=== PATIENT | female | born 1995 | race American Indian/Alaskan Native ===

== ENCOUNTER 2018-01-16 14:50 | Inpatient (IN) | payer MEDICAID ==
[2018-01-16] MEDS ORDERED: SUBLIMAZE IV PRN (17:13)
[2018-01-16] MEDS ORDERED: ZOFRAN IV PRN ×2 (17:13→17:39)
[2018-01-16] MEDS ORDERED: XYLOCAINE 2% INFILTRATI ONE (17:13)
[2018-01-16] MEDS ORDERED: MINERAL OIL PO PRN (17:13)
[2018-01-16] MEDS ORDERED: BRETHINE SUB-Q PRN (17:13)
[2018-01-16] MEDS ORDERED: ePHEDrine SULFATE IV PRN (17:13)
[2018-01-16] MEDS ORDERED: BRETHINE IVP PRN (17:13)
[2018-01-16] MEDS ORDERED: STADOL IV PRN (17:13)
--- NOTE | 2018-01-16 17:17 | History and Physical Report ---
History of Present Illness Date of examination: 01/16/18 Date of admission: 01/16/18 14:51 Chief complaint: Labor History of present illness: Pt is a 22yo BF EDC 02/01/18; EGA 37 5/7 weeks presents to L&D complaining of RUC's q 3-4 mins. She received care at [facility] however records are not available and GBS is unknown. Past History Past Medical History: no pertinent history Past Surgical History: no surgical history Social history: no significant social history, single - Obstetrical History Expected Date of Delivery: 02/01/18 Actual Gestation: 37 Week(s) 5 Day(s) : 1 Medications and Allergies Allergies Allergy/AdvReac Type Severity Reaction Status Date / Time No Known Allergies Allergy Unverified 01/16/18 15:02 Home Medications Medication Instructions Recorded Confirmed Last Taken Type Pnv No.121/Iron/Folic Acid 1 each PO DAILY 01/16/18 01/16/18 01/16/18 History [ Multivitamin Tablet] 2100 Review of Systems All systems: negative - Vital Signs Vital signs: Vital Signs Pulse BP Pulse Ox 106 H 120/79 100 01/16/18 15:20 01/16/18 15:20 01/16/18 15:20 Temp Pulse Resp BP Pulse Ox 91 H 120/79 100 01/16/18 15:55 01/16/18 15:20 01/16/18 15:55 - Physical Exam Breasts: Positive: deferred Cardiovascular: Regular rate Lungs: Positive: Clear to auscultation Abdomen: Positive: normal appearance Genitourinary (Female): Positive: normal external genitalia Uterus: Positive: enlarged Extremities: Positive: normal - Obstetrical FHR: category 1 Uterine Contraction Monitor Mode: External Cervical Dilatation: 6 Cervical Effacement Percentage: 90 station: -1 Uterine Contraction Pattern: Regular Uterine Tone Measurement Phase: Contraction Uterine Contraction Intensity: Moderate Results Result Diagrams: 01/16/18 17:40 All other labs normal. Assessment and Plan - Patient Problems (1) 37 weeks gestation of Onset Date: 01/16/18 Current Visit: Yes Status: Acute Plan to address problem: A: IUP @ 37 5/7 weeks in labor Unknown GBS P: Admit to L&D for expectant vaginal delivery IV Ampicillin Obtain records
--- NOTE | 2018-01-16 17:38 | Procedure Note ---
OB Delivery Note - Delivery Date of Delivery: 01/16/18 Surgeon: FLORIN LAGUNA Estimated blood loss: 100cc - Vaginal Delivery presentation: vertex Delivery position: OA Intrapartum events: none, precipitous labor- <3hr Delivery induction: none Delivery augmentation: rupture of membranes Delivery monitor: external FHT, external uterine Route of delivery: Delivery placenta: spontaneous Delivery cord: 3 umbilical vessels Episiotomy: none Delivery laceration: 2nd degree (perineal) Delivery repair: vicryl Anesthesia: local Delivery comments: Infant delivered OA and placed on Mom's chest for [id number] bonding and delayed cord clamping - Infant A at 1 minute: 8 at 5 minutes: 8 Infant Gender: Female (2875gms)
[2018-01-16] MEDS ORDERED: PHENERGAN PR PRN (17:39)
[2018-01-16] MEDS ORDERED: MILK OF MAGNESIA PO PRN (17:39)
[2018-01-16] MEDS ORDERED: NORCO 5/325 PO PRN (17:39)
[2018-01-16] MEDS ORDERED: BENADRYL PO PRN (17:39)
[2018-01-16] MEDS ORDERED: DULCOLAX PR PRN (17:39)
[2018-01-16] MEDS ORDERED: TUCKS PAD TP PRN (17:39)
[2018-01-16] MEDS ORDERED: LANSINOH TP PRN (17:39)
[2018-01-16] MEDS ORDERED: PHENERGAN PO PRN (17:39)
[2018-01-16] MEDS ORDERED: TYLENOL PO PRN (17:39)
[2018-01-16] MEDS ORDERED: PITOCin/NS 30 UNIT/500ML 30 UNITS/500 ML BAG IV SCH ×2 (18:00)
[2018-01-16] MEDS ORDERED: PITOCin/NS 20 UNIT/1000ML DRIP 20 UNITS/1,000 ML BAG IV SCH (18:00)
[2018-01-16] MEDS ORDERED: POLYCILLIN/NS 2 GM/100 ML 2 GM/100 ML BAG IV ONE (18:00)
[2018-01-16] MEDS ORDERED: SODIUM CHLORIDE FLUSH SYRINGE 10 ML IV NR (18:00)
[2018-01-16] MEDS ORDERED: NORMOSOL-R PH 7.4 1,000 ML IV SCH (18:00)
[2018-01-16 18:08] LABS: Hematocrit 39.7 % (30.3-42.9); Hemoglobin 12.9 gm/dl (10.1-14.3); Mean Corpuscular HGB Conc 32 % (30-34); Mean Corpuscular Hemoglobin 29 pg (28-32); Mean Corpuscular Volume 90 fl (79-97); Platelet Count 227 K/mm3 (140-440); Red Blood Count 4.43 M/mm3 (3.65-5.03); Red Cell Distribution Width 13.2 % (13.2-15.2)
[2018-01-16] MEDS ORDERED: AMPICILLIN/NS 1 GM/50 ML 1 GM/50 ML BAG IV SCH (21:14)
[2018-01-16] MEDS: FEOSOL PO SCH (21:50)
[2018-01-16] MEDS: COLACE PO SCH (21:50)
[2018-01-16] MEDS: MOTRIN PO SCH (23:53)
[2018-01-17 05:13] LABS: Hemoglobin 11.7 gm/dl (10.1-14.3)
[2018-01-17] MEDS ORDERED: BOOSTRIX IM ONE (06:00)
[2018-01-17] MEDS: MOTRIN PO SCH ×4 (06:00→23:25)
--- NOTE | 2018-01-17 08:28 | Progress Note ---
Assessment and Plan - Patient Problems (1) 37 weeks gestation of Onset Date: 01/16/18 Current Visit: Yes Status: Resolved (2) (normal spontaneous vaginal delivery) Onset Date: 01/17/18 Current Visit: Yes Status: Resolved Plan to address problem: A: S/P - PPD #1 Doing well P: May go home tomorrow. Subjective - Subjective Date of service: 01/17/18 Principal diagnosis: s/p - PPD #1 Interval history: Pt is feeling well without complaints. Bleeding improved. Patient reports: appetite normal, voiding normally, pain well controlled, flatus , ambulating normally : doing well, nursing well, bottle feeding Objective - Vital Signs Latest vital signs: Vital Signs Temp Pulse Resp BP BP Pulse Ox 01/17/18 06:00 18 01/17/18 04:35 97.4 F L 94 H 18 96/62 99 01/17/18 01:15 98.8 F 83 18 93/61 97 01/17/18 00:53 18 01/16/18 23:53 18 01/16/18 19:35 98.8 F 74 18 107/69 01/16/18 19:09 87 127/85 01/16/18 18:54 85 121/80 01/16/18 18:39 82 116/77 01/16/18 18:24 95 H 108/72 01/16/18 18:20 88 105/67 01/16/18 17:53 107 H 117/74 01/16/18 17:49 98.7 F 16 01/16/18 17:39 98 H 122/72 01/16/18 15:55 91 H 100 01/16/18 15:50 88 100 01/16/18 15:45 83 100 01/16/18 15:40 95 H 100 01/16/18 15:35 84 100 01/16/18 15:30 106 H 99 01/16/18 15:28 112 H 93 01/16/18 15:25 89 100 01/16/18 15:20 118 H 120/79 100 Intake and Output 01/16/18 01/17/18 01/17/18 22:59 06:59 14:59 Intake Total 240 360 Output Total 500 400 Balance -260 -40 Intake: Oral 360 Intake, Free Water 240 Output: Urine 500 400 Void 500 400 Other: Total, Intake Amount 120 Total, Output Amount 500 400 Weight 64.864 kg Estimated Blood Loss 100 - Exam Breasts: Present: deferred Abdomen: Present: normal appearance, soft Uterus: Present: normal, firm, fundal height below umbilicus Extremities: Present: normal - Labs Labs: Abnormal lab results 01/16/18 Range/Units 17:40 WBC 14.1 H (4.5-11.0) K/mm3 Laboratory Tests 01/16/18 01/16/18 01/17/18 17:40 17:40 04:05 WBC 14.1 H RBC 4.43 Hgb 12.9 11.7 Hct 39.7 35.0 MCV 90 MCH 29 MCHC 32 RDW 13.2 Plt Count 227 Blood Type O POSITIVE Antibody Screen Negative
--- NOTE | 2018-01-17 08:45 | Discharge Summary ---
Providers - Providers Date of Admission: 01/16/18 14:51 Date of discharge: 01/18/18 Attending physician: FLORIN LAGUNA Primary care physician: FLORIN LAGUNA Hospitalization Reason for admission: active labor, IUP at term Delivery: Episiotomy: none Laceration: 2nd degree Other procedures: none complications: none Discharge diagnosis: IUP at term delivered [place] baby: female Hospital course: Unremarkable. Condition at discharge: Good Disposition: DC-01 TO HOME OR SELFCARE - Discharge Diagnoses (1) 37 weeks gestation of Status: Resolved (2) (normal spontaneous vaginal delivery) Status: Resolved Plan - Discharge Medications Prescriptions: Ferrous Sulfate [Feosol 325 MG tab] 325 mg PO BID #60 tablet Ibuprofen [Motrin 600 MG tab] 600 mg PO Q6H #30 tablet Vit-Fe Fumar-FA [ Vitamin] 1 each PO QDAY #30 tablet - Provider Discharge Summary Activity: routine, no sex for 6 weeks, no heavy lifting 4 weeks, no strenuous exercise Diet: routine Instructions: routine Additional instructions: [] Smoking cessation referral if applicable(refer to patient education folder for contact #) [] Refer to [facility] Booklet Call your doctor immediately for: * Fever > 100.5 * Heavy vaginal bleeding ( >1 pad per hour) * Severe persistent headache * Shortness of breath * Reddened, hot, painful area to leg or breast * Drainage or odor from incision. * Keep incision clean and dry at all times and follow doctor's instructions regarding bathing/showering - Follow up plan Follow up: FLORIN LAGUNA MD [Primary Care Provider] - 6 Weeks
[2018-01-17] MEDS ORDERED: PRENATAL VITAMIN PO SCH (10:00)
[2018-01-17] MEDS: COLACE PO SCH ×2 (11:38→21:52)
[2018-01-17] MEDS: FEOSOL PO SCH ×2 (11:38→21:52)
[2018-01-17] MEDS ORDERED: M-M-R II VACCINE SUB-Q ONE (17:39)
[2018-01-18] MEDS: MOTRIN PO SCH ×2 (05:58→12:18)
[2018-01-18] MEDS: FEOSOL PO SCH (12:18)
[2018-01-18] MEDS: COLACE PO SCH (12:18)
[2018-01-18 18:49] VITALS: BP 104/72
== END 2018-01-18 19:00 | disposition home or self-care (01) | DRG 775 ==
LOC: TRG 14:50 → LD 14:51 → TRG 14:51 → OB 19:23
PROVIDERS: ADMIT Obstetrics & Gynecology; ATTEND Obstetrics & Gynecology
PROC: 10E0XZZ Delivery of Products of Conception, External Approach (ICD-10-PCS; principal; 2018-01-16)
PROC: 0KQM0ZZ Repair Perineum Muscle, Open Approach (ICD-10-PCS; 2018-01-16)
PROC: 3E0234Z Introduction of Serum, Toxoid and Vaccine into Muscle, Percutaneous Approach (ICD-10-PCS; 2018-01-17)
DX: O62.3 Precipitate labor (principal); O70.1 Second degree perineal laceration during delivery; Z3A.37 37 weeks gestation of pregnancy; Z37.0 Single live birth; Z23 Encounter for immunization
CPT/HCPCS: 36415; 85014; 85018; 85027; 86592; 86850; 86900; 86901; 99211; A6250; G0463; J2590